=== PATIENT | male | born 1975 | race American Indian/Alaskan Native ===

== ENCOUNTER 2017-12-26 19:29 | Emergency (ER) | payer SELFPAY ==
[2017-12-26] MEDS ORDERED: MOTRIN PO ONE (20:03)
[2017-12-26 20:45] LABS: Basophils % (Auto) 0.8 % (0.0-1.8); Eosinophils # (Auto) 0.1 K/mm3 (0.0-0.4); Eosinophils % (Auto) 1.6 % (0.0-4.3); Hematocrit 43.6 % (35.5-45.6); Hemoglobin 14.8 gm/dl (11.8-15.2); Lymphocytes # (Auto) 2.1 K/mm3 (1.2-5.4); Lymphocytes % (Auto) 40.3 % (13.4-35.0); Mean Corpuscular HGB Conc 34 % (32-34); Mean Corpuscular Hemoglobin 31 pg (28-32); Mean Corpuscular Volume 92 fl (84-94); Monocytes # (Auto) 0.6 K/mm3 (0.0-0.8); Monocytes % (Auto) 10.6 % (0.0-7.3); Platelet Count 144 K/mm3 (140-440); Red Blood Count 4.73 M/mm3 (3.65-5.03); Red Cell Distribution Width 15.2 % (13.2-15.2)
[2017-12-26 20:59] LABS: Calcium 9.5 mg/dL (8.4-10.2)
--- NOTE | 2017-12-26 23:46 | XRay Report ---
FINAL REPORT EXAM: XR TIBIA FIBULA 2V RT HISTORY: Swelling and pain right lower leg TECHNIQUE: AP and lateral views tibia-fibula PRIORS: None. FINDINGS: No fracture is identified. The joint spaces are within normal limits. No focal bony lesion identified. No radiopaque foreign body seen. IMPRESSION: Negative no acute abnormality.
--- NOTE | 2017-12-27 00:13 | Emergency Department Report ---
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 now with intermittent right lower extremity pain pain is described as 6 /10 and aching exacerbated by completing work duties shoveling digging carrying heavy loads there's been no fall injury at time pain is relieved by rest NSAIDs muscle relaxants and pain is exacerbated by performing work duties no numbness no tingling loss of bowel or bladder function MD Complaint: other (leg pain radiating from the low back to right lower extremity) Onset/Timin -: week(s) Injury: Leg: Right Place: work Severity: moderate Severity scale (0 -10): 6 Improves With: NSAID, rest Worsens With: movement, palpation Associated Symptoms: other (aching ) - Related Data Previous Rx's Medication Instructions Recorded Last Taken Type Cyclobenzaprine [Flexeril] 10 mg PO TID PRN #20 tablet 12/27/17 Unknown Rx Menthol/Camphor [Sloan Doole 1 applicatio TP TID PRN #1 tube 12/27/17 Unknown Rx Ointment] Naproxen 500 mg PO BID PRN #30 tablet 12/27/17 Unknown Rx Allergies Allergy/AdvReac Type Severity Reaction Status Date / Time No Known Allergies Allergy Unverified 12/26/17 19:58 ED Review of Systems ROS: Stated complaint: INSECT BITE RT LEG Other details as noted in HPI Constitutional: denies: chills, fever Eyes: denies: eye pain, eye discharge, vision change ENT: denies: ear pain, throat pain Respiratory: denies: cough, shortness of breath, wheezing Cardiovascular: denies: chest pain, palpitations Endocrine: no symptoms reported Gastrointestinal: denies: abdominal pain, nausea, diarrhea Genitourinary: denies: urgency, dysuria Musculoskeletal: back pain, myalgia Skin: denies: rash, lesions Neurological: denies: headache, weakness, numbness, paresthesias, vertigo Psychiatric: denies: anxiety, depression Hematological/Lymphatic: denies: easy bleeding, easy bruising ED Past Medical Hx - Past Medical History Previous Medical History?: No - Surgical History Past Surgical History?: No - Social History Smoking Status: Current Every Day Smoker Substance Use Type: None - Medications Home Medications: Home Medications Medication Instructions Recorded Confirmed Last Taken Type Cyclobenzaprine [Flexeril] 10 mg PO TID PRN #20 tablet 12/27/17 Unknown Rx Menthol/Camphor [Sloan Doole 1 applicatio TP TID PRN #1 tube 12/27/17 Unknown Rx Ointment] Naproxen 500 mg PO BID PRN #30 tablet 12/27/17 Unknown Rx ED Physical Exam - General Limitations: No Limitations General appearance: alert, in no apparent distress - Head Head exam: Present: atraumatic, normocephalic - Eye Eye exam: Present: normal appearance - ENT ENT exam: Present: mucous membranes moist - Neck Neck exam: Present: normal inspection, full ROM. Absent: tenderness, lymphadenopathy, thyromegaly - Respiratory Respiratory exam: Present: normal lung sounds bilaterally. Absent: respiratory distress - Cardiovascular Cardiovascular Exam: Present: regular rate, normal rhythm. Absent: systolic murmur, diastolic murmur, rubs, gallop - GI/Abdominal GI/Abdominal exam: Present: soft, normal bowel sounds - Rectal Rectal exam: Present: deferred - Extremities Exam Extremities exam: Present: normal inspection, full ROM, tenderness (right tib fib anterior tenderness no ecchymosis no swelling no ecchymosis no deformity ), normal capillary refill. Absent: pedal edema, joint swelling, calf tenderness - Back Exam Back exam: Present: tenderness, CVA tenderness (R), muscle spasm, paraspinal tenderness. Absent: CVA tenderness (L), vertebral tenderness, rash noted - Expanded Back Exam Expanded Back exam: Absent: saddle anesthesia Back exam: Sciatic Notch Tenderness: Right, Positive Straight Leg Raise: Right, Negative Straight Leg Raising: Left - Neurological Exam Neurological exam: Present: alert, oriented X3, CN II-XII intact, normal gait, reflexes normal - Expanded Neurological Exam Expanded Patient oriented to: Present: person, place, time Speech: Present: fluid speech Cranial nerves: EOM's Intact: Normal, Gag Reflex: Normal, Tongue Deviation: Normal, Nystagmus: Normal, Facial Sensation: Normal Cerebellar function: Finger to Nose: Normal, Romberg: Normal Sensory exam: Lower Extremity Light Touch: Normal, Lower Extremity Pin Prick: Normal, Lower Extremity Temperature: Normal, LE 2 Point Discrimination: Normal Motor strength exam: RUE: 5, LUE: 5, RLE: 5, LLE: 5 DTR: knee (R): 2+, knee (L): 2+, ankle (R): 2+, ankle (L): 2+ Best Eye Response (Harrison): (4) open spontaneously Best Motor Response (Jael): (6) obeys commands Best Verbal Response (Harrison): (5) oriented Harrison Total: 15 - Psychiatric Psychiatric exam: Present: normal affect, normal mood - Skin Skin exam: Present: warm, dry, intact, normal color. Absent: rash ED Course Vital Signs 12/26/17 12/26/17 19:43 19:47 Temperature 99.0 F 99 F Pulse Rate 84 78 Respiratory 18 18 Rate Blood Pressure 134/77 134/77 O2 Sat by Pulse 96 99 Oximetry ED Lower Extremity MDM - Lab Data Result diagrams: 12/26/17 20:31 12/26/17 20:31 - Radiology Data Radiology results: report reviewed, image reviewed X-ray normal fractional soft tissue injury - Medical Decision Making Is low back strain with sciatica radiating to right lower extremity , naproxen Flexeril moist heat therapy follow-up with PCP in 2-3 days patient request referral to orthopedics will refer sent patient, a/o 3 hammertoe a steady gait patient DC'd home in stable condition at this time Critical care attestation.: If time is entered above; I have spent that time in minutes in the direct care of this critically ill patient, excluding procedure time. ED Disposition Clinical Impression: Low back strain Qualifiers: Encounter type: initial encounter Qualified Code(s): S39.012A - Strain of muscle, fascia and tendon of lower back, initial encounter Disposition: DC-01 TO HOME OR SELFCARE Is pt being admited?: No Does the pt Need Aspirin: No Condition: Good Instructions: Muscle Strain (ED), Low Back Strain (ED), Core Strengthening Exercises (GEN) Prescriptions: Cyclobenzaprine [Flexeril] 10 mg PO TID PRN #20 tablet PRN Reason: Muscle Spasm Menthol/Camphor [Sloan Doole Ointment] 1 applicatio TP TID PRN #1 tube PRN Reason: pain Naproxen 500 mg PO BID PRN #30 tablet PRN Reason: pain Referrals: DEIRDRE GUPTA MD [Staff Physician] - 3-5 Days Forms: Work/School Release Form(ED) Time of Disposition: 00:22
[2017-12-27 00:45] VITALS: BP 136/80
== END 2017-12-27 00:45 | disposition home or self-care (01) ==
LOC: ED 19:29
DX: S39.012A Strain of muscle, fascia and tendon of lower back, initial encounter (principal); F17.200 Nicotine dependence, unspecified, uncomplicated; X50.0XXA Overexertion from strenuous movement or load, initial encounter; Y93.89 Activity, other specified; Y92.69 Other specified industrial and construction area as the place of occurrence of the external cause; Y99.8 Other external cause status
CPT/HCPCS: 36415; 80048; 85025; 99284